=== PATIENT | male | born 1980 | race African-American/Black ===

== ENCOUNTER 2017-12-20 13:34 | Emergency (ER) | payer OTHER ==
[~2017-12-20] VITALS: Ht 175.3 cm; Wt 67.0 kg
[2017-12-20 13:59] VITALS: BP 105/73
[2017-12-20] MEDS ORDERED: IBUPROFEN 600MG TABLET PO ONE (17:30)
== END 2017-12-20 17:50 | disposition home or self-care (01) ==
LOC: ER 14:30
DX: S62.396A Other fracture of fifth metacarpal bone, right hand, initial encounter for closed fracture (principal); Y08.89XA Assault by other specified means, initial encounter; Y93.89 Activity, other specified; Y92.89 Other specified places as the place of occurrence of the external cause; Y99.8 Other external cause status; Z98.890 Other specified postprocedural states
CPT/HCPCS: 29125; 73130; 99284

== ENCOUNTER 2018-01-16 15:32 | Emergency (ER) | payer OTHER ==
[~2018-01-16] VITALS: Ht 188 cm; Wt 66.0 kg
[2018-01-16] MEDS ORDERED: IBUPROFEN 600MG TABLET PO ONE (18:45)
[2018-01-16] MEDS ORDERED: LIDOCAINE HCL 1% 20ML VIAL (Pyxis) INJ INFIL ONE (19:45)
[2018-01-16] MEDS ORDERED: BACITRACIN ZINC OINT UDPKT TOP ONE (19:45)
[2018-01-16] MEDS ORDERED: LIDOCAINE HCL/PF 1% 10 MG/ML 5ML VIAL IJ NR (20:15)
[2018-01-16] MEDS ORDERED: ACETAMINOPHEN 500MG TABLET PO ONE (20:30)
[2018-01-16 22:01] VITALS: BP 115/87
== END 2018-01-16 22:02 | disposition home or self-care (01) ==
LOC: ER 15:32
DX: S61.211A Laceration without foreign body of left index finger without damage to nail, initial encounter (principal); W26.0XXA Contact with knife, initial encounter; Y93.G3 Activity, cooking and baking; Y92.090 Kitchen in other non-institutional residence as the place of occurrence of the external cause; Z72.0 Tobacco use
CPT/HCPCS: 12001; 99283; J3490

== ENCOUNTER 2018-01-27 14:02 | Emergency (ER) | payer OTHER ==
[~2018-01-27] VITALS: Ht 188 cm; Wt 70.0 kg
[2018-01-27 14:12] VITALS: BP 112/70
== END 2018-01-27 19:11 | disposition home or self-care (01) ==
LOC: ER 14:02
DX: S61.210D Laceration without foreign body of right index finger without damage to nail, subsequent encounter (principal); F17.200 Nicotine dependence, unspecified, uncomplicated; X58.XXXD Exposure to other specified factors, subsequent encounter; Z86.73 Personal history of transient ischemic attack (TIA), and cerebral infarction without residual deficits; Z98.890 Other specified postprocedural states
CPT/HCPCS: 99281

== ENCOUNTER 2019-10-26 15:20 | Emergency (ER) | payer MEDICAID, OTHER ==
[~2019-10-26] VITALS: Ht 188 cm; Wt 68.0 kg
[2019-10-26 15:56] VITALS: BP 121/83
[2019-10-26] MEDS ORDERED: CEFTRIAXONE SODIUM 250 MG/VIAL IM ONE (16:30)
[2019-10-26] MEDS ORDERED: LIDOCAINE HCL/PF 1% 10 MG/ML 5ML VIAL IJ ONE (16:30)
[2019-10-26] MEDS ORDERED: AZITHROMYCIN 500 MG TABLET PO ONE (16:30)
[2019-10-26 16:47] LABS: CLARITY URINE TURBID (CLEAR); COLOR URINE YELLOW (YELLOW); KETONES URINE TRACE (NEGATIVE); LEUKOCYTE ESTERASE URINE NEGATIVE (NEGATIVE); NITRITE URINE NEGATIVE (NEGATIVE); OCCULT BLOOD URINE NEGATIVE (NEGATIVE); PH URINE 5.5 (4.5-8.0); PROTEIN URINE TRACE (NEGATIVE); SPECIFIC GRAVITY URINE 1.035 (1.005-1.030)
[2019-10-30 04:07] LABS: NEISSERIA GONORRHOEAE NAA Negative (Negative)
== END 2019-10-26 17:00 | disposition home or self-care (01) ==
LOC: ER 15:20
DX: A64 Unspecified sexually transmitted disease (principal); F41.9 Anxiety disorder, unspecified; Z86.73 Personal history of transient ischemic attack (TIA), and cerebral infarction without residual deficits
CPT/HCPCS: 81003; 87491; 87591; 96372; 99284; J0696; J3490; 99283

== ENCOUNTER 2020-03-07 14:39 | Emergency (ER) | payer MEDICAID ==
[~2020-03-07] VITALS: Ht 188 cm; Wt 62.0 kg
[2020-03-07 14:51] VITALS: BP 108/72
[2020-03-07] MEDS ORDERED: IBUPROFEN 600MG TABLET PO ONE (16:00)
== END 2020-03-07 16:59 | disposition home or self-care (01) ==
LOC: ER 14:39
DX: S63.619A Unspecified sprain of unspecified finger, initial encounter (principal); X58.XXXA Exposure to other specified factors, initial encounter; Y93.89 Activity, other specified; Y92.89 Other specified places as the place of occurrence of the external cause; Y99.8 Other external cause status
CPT/HCPCS: 29130; 73140; 99283

== ENCOUNTER 2020-10-03 07:42 | Emergency (ER) | payer MEDICAID ==
[~2020-10-03] VITALS: Ht 188 cm; Wt 72.0 kg
[2020-10-03] MEDS: TETANUS, DIPHTHERIA, PERTUSSIS VAC/PF 0.5ML (>7YR OLD) IM ONE ×2 (08:15→08:18)
[2020-10-03] MEDS ORDERED: OLANZAPINE 5MG TABLET ODT PO ONE (08:15)
[2020-10-03] MEDS ORDERED: LIDOCAINE HCL/PF 1% 10 MG/ML 5ML VIAL IJ ONE (08:15)
[2020-10-03] MEDS ORDERED: CEPH500T MT (10:43)
[2020-10-03 12:20] VITALS: BP 130/85
== END 2020-10-03 12:29 | disposition home or self-care (01) ==
LOC: ER 07:42
DX: S01.511A Laceration without foreign body of lip, initial encounter (principal); Z86.59 Personal history of other mental and behavioral disorders; Y04.0XXA Assault by unarmed brawl or fight, initial encounter; Y93.89 Activity, other specified; Y92.89 Other specified places as the place of occurrence of the external cause; Y99.8 Other external cause status
CPT/HCPCS: 12013; 70450; 72125; 99285; J3490; Z7610; 90715

== ENCOUNTER 2020-10-11 14:33 | Emergency (ER) | payer MEDICAID ==
[~2020-10-11] VITALS: Ht 188 cm; Wt 68.0 kg
[~2020-10-11 14:33] MED LIST: CEPH500T MT
[2020-10-11 15:11] VITALS: BP 123/83
== END 2020-10-11 15:35 | disposition home or self-care (01) ==
LOC: ER 14:33
DX: Z48.02 Encounter for removal of sutures (principal)
CPT/HCPCS: 99281

== ENCOUNTER 2021-04-10 18:52 | Emergency (ER) | payer MEDICAID ==
[~2021-04-10] VITALS: Ht 188 cm; Wt 70.0 kg
[2021-04-10 22:11] LABS: CLARITY URINE CLEAR (CLEAR); COLOR URINE DARK YELLOW (YELLOW); KETONES URINE 2+ (NEGATIVE); LEUKOCYTE ESTERASE URINE NEGATIVE (NEGATIVE); NITRITE URINE NEGATIVE (NEGATIVE); OCCULT BLOOD URINE NEGATIVE (NEGATIVE); PH URINE 5.5 (4.5-8.0); PROTEIN URINE 1+ (NEGATIVE); SPECIFIC GRAVITY URINE 1.035 (1.005-1.030); UROBILINOGEN URINE 0.2 E.U./dL (0.2-1.0)
[2021-04-10 22:13] LABS: BASOPHILS % 0.5 % (0.0-2.0); EOSINOPHILS % 0.4 % (0.0-5.0); HEMATOCRIT. 38.4 % (42.0-52.0); LYMPHOCYTES % 24.7 % (20.0-50.0); MEAN CORPUSCULAR HEMOGLOBIN 30.3 pg (28.0-32.0); MEAN CORPUSCULAR VOLUME 89.8 fL (80.0-94.0); MEAN PLATELET VOLUME 8.1 fl (7.4-10.4); MONOCYTES % 10.7 % (2.0-8.0); NEUTROPHILS % 63.7 % (40.0-76.0); PLATELET 242 x1000/uL (130-400); RED BLOOD CELL COUNT 4.27 mill/uL (4.7-6.1); RED CELL DISTRIBUTION WIDTH 14.6 % (11.6-14.6)
[2021-04-10 22:20] LABS: CHLORIDE 109 mEq/L (98-107)
[2021-04-10 22:24] LABS: ETHANOL BLOOD < 10 mg/dL
[2021-04-10 22:29] LABS: *BARBITURATES SCREEN URINE NEGATIVE (NEGATIVE); CANNABINOID URINE SCREEN PRESUMTIVE POSITIVE (NEGATIVE); OPIATES URINE SCREEN NEGATIVE (NEGATIVE); PHENCYCLIDINE URINE SCREEN PRESUMTIVE POSITIVE (NEGATIVE)
[2021-04-10 22:30] LABS: *BENZODIAZEPINES SCREEN URINE PRESUMTIVE POSITIVE (NEGATIVE); *COCAINE SCREEN URINE NEGATIVE (NEGATIVE); METHADONE URINE SCREEN NEGATIVE (NEGATIVE)
[2021-04-10] MEDS ORDERED: LORAZEPAM 2MG/ML CPJ IV ONE ×2 (22:30→23:00)
[2021-04-10 22:33] LABS: *AMPHETAMINES SCREEN URINE PRESUMTIVE POSITIVE (NEGATIVE)
[2021-04-10] MEDS ORDERED: HALOPERIDOL LACTATE 5MG/ML VIAL IM ONE (23:00)
[2021-04-11] MEDS: OLANZAPINE 5MG TABLET PO SCH (09:30)
[2021-04-12] MEDS: OLANZAPINE 5MG TABLET PO SCH ×2 (20:39→20:42)
[2021-04-13] MEDS: OLANZAPINE 5MG TABLET PO SCH ×3 (09:18→21:00)
[2021-04-14] MEDS: OLANZAPINE 5MG TABLET PO SCH (08:48)
[2021-04-14] MEDS ORDERED: CITALOPRAM HYDROBROMIDE 10MG TABLET PO NR (12:45)
[2021-04-14 16:42] VITALS: BP 116/73
[2021-04-14] MEDS ORDERED: QUETIAPINE FUMARATE 50MG TABLET PO SCH (21:00)
== END 2021-04-14 17:10 | disposition short-term general hospital (02) ==
LOC: ER 18:52
DX: F20.9 Schizophrenia, unspecified (principal); R45.851 Suicidal ideations; F17.200 Nicotine dependence, unspecified, uncomplicated; F16.129 Hallucinogen abuse with intoxication, unspecified; F19.10 Other psychoactive substance abuse, uncomplicated; I49.9 Cardiac arrhythmia, unspecified; Z20.822 Contact with and (suspected) exposure to COVID-19
CPT/HCPCS: 36415; 80053; 80305; 80320; 81003; 85025; 93005; 96372; 96374; 99285; J1630; J2060; G0480

== ENCOUNTER 2021-05-22 08:32 | Emergency (ER) | payer MEDICAID ==
[~2021-05-22] VITALS: Ht 188 cm; Wt 69.0 kg
[2021-05-22] MEDS ORDERED: DOXY100C5 MT (08:54)
[2021-05-22] MEDS ORDERED: CEFTRIAXONE SODIUM 500 MG/VIAL IM ONE (09:00)
[2021-05-22] MEDS ORDERED: DOXYCYCLINE HYCLATE 100MG CAPSULE PO ONE (09:00)
[2021-05-22 10:04] VITALS: BP 121/81
[2021-05-25 07:08] LABS: NEISSERIA GONORRHOEAE NAA Negative (Negative)
== END 2021-05-22 10:00 | disposition home or self-care (01) ==
LOC: ER 08:32
DX: Z11.3 Encounter for screening for infections with a predominantly sexual mode of transmission (principal); F12.10 Cannabis abuse, uncomplicated; F13.10 Sedative, hypnotic or anxiolytic abuse, uncomplicated; Z98.890 Other specified postprocedural states; Z86.59 Personal history of other mental and behavioral disorders
CPT/HCPCS: 87491; 87591; 96372; 99283; J0696

== ENCOUNTER 2022-02-12 08:44 | Emergency (ER) | payer MEDICAID ==
[~2022-02-12] VITALS: Ht 188 cm; Wt 73.0 kg
[~2022-02-12 08:44] MED LIST changes: +DOXY100C5 MT
[2022-02-12 09:02] VITALS: BP 120/80
== END 2022-02-12 10:56 | disposition left against medical advice (07) ==
LOC: ER 09:07
DX: Z53.21 Procedure and treatment not carried out due to patient leaving prior to being seen by health care provider (principal)

== ENCOUNTER 2022-07-11 14:22 | Emergency (ER) | payer MEDICAID ==
[~2022-07-11] VITALS: Ht 185.4 cm; Wt 64.0 kg
[2022-07-11 14:27] VITALS: BP 103/69
[2022-07-11 18:58] LABS: CLARITY URINE CLEAR (CLEAR); COLOR URINE YELLOW (YELLOW); KETONES URINE TRACE (NEGATIVE); LEUKOCYTE ESTERASE URINE NEGATIVE (NEGATIVE); NITRITE URINE NEGATIVE (NEGATIVE); OCCULT BLOOD URINE NEGATIVE (NEGATIVE); PROTEIN URINE TRACE (NEGATIVE); UROBILINOGEN URINE 0.2 E.U./dL (0.2-1.0)
[2022-07-11 19:03] LABS: CHLORIDE 109 mEq/L (98-107)
[2022-07-11 19:45] LABS: BASOPHILS % 0.7 % (0.0-2.0); EOSINOPHILS % 1.6 % (0.0-5.0); HEMATOCRIT. 41.2 % (42.0-52.0); HEMOGLOBIN. 13.6 g/dL (14.0-18.0); LYMPHOCYTES % 43.2 % (20.0-50.0); MEAN CORPUSCULAR HEMOGLOBIN 30.1 pg (28.0-32.0); MEAN CORPUSCULAR VOLUME 91.1 fL (80.0-94.0); MEAN PLATELET VOLUME 8.6 fl (7.4-10.4); MONOCYTES % 7.7 % (2.0-8.0); NEUTROPHILS % 46.8 % (40.0-76.0); PLATELET 244 x1000/uL (130-400); RED BLOOD CELL COUNT 4.52 mill/uL (4.7-6.1); RED CELL DISTRIBUTION WIDTH 14.8 % (11.6-14.6)
== END 2022-07-11 20:51 | disposition home or self-care (01) ==
LOC: ER 14:36
DX: R10.9 Unspecified abdominal pain (principal); R31.9 Hematuria, unspecified; D64.9 Anemia, unspecified; F41.9 Anxiety disorder, unspecified; F12.10 Cannabis abuse, uncomplicated
CPT/HCPCS: 36415; 80048; 81003; 85025; 99283

== ENCOUNTER 2024-10-06 15:26 | Emergency (ER) | payer MEDICAID ==
[~2024-10-06] VITALS: Ht 188 cm; Wt 67.0 kg
[2024-10-06 15:34] VITALS: O2SAT 99
[2024-10-06 17:03] LABS: CLARITY URINE CLEAR (CLEAR); COLOR URINE YELLOW (YELLOW); GLUCOSE URINE NEGATIVE (NEGATIVE); KETONES URINE TRACE (NEGATIVE); LEUKOCYTE ESTERASE URINE NEGATIVE (NEGATIVE); NITRITE URINE NEGATIVE (NEGATIVE); OCCULT BLOOD URINE 3+ (NEGATIVE); PH URINE 5.5 (4.5-8.0); PROTEIN URINE TRACE (NEGATIVE); SPECIFIC GRAVITY URINE 1.032 (1.005-1.030); UROBILINOGEN URINE 0.2 E.U./dL (0.2-1.0)
[2024-10-06 17:20] LABS: BACTERIA URINE NONE SEEN; RBC URINE TNTC /hpf (0-2); SQUAMOUS EPITHELIAL CELL URINE RARE /lpf (RARE/1+); WBC URINE 0-2 /hpf (0-2)
[2024-10-06] MEDS ORDERED: DOXY100C5 MT (17:30)
[2024-10-06] MEDS: LIDOCAINE HCL 1% 20ML VIAL INFIL ONE (17:30)
[2024-10-06] MEDS: CEFTRIAXONE SODIUM 500MG VIAL IM ONE (17:36)
[2024-10-06 17:54] VITALS: BP 126/82; PULSE 79; RESP 18; TEMP 36.8; O2SAT 99
[2024-10-10 04:07] LABS: CHLAMYDIA TRACHOMATIS NAA Negative (Negative); NEISSERIA GONORRHOEAE NAA Negative (Negative)
== END 2024-10-06 17:55 | disposition home or self-care (01) ==
LOC: ER 15:26
DX: R31.9 Hematuria, unspecified (principal); R30.0 Dysuria; A63.8 Other specified predominantly sexually transmitted diseases; F20.9 Schizophrenia, unspecified; F10.90 Alcohol use, unspecified, uncomplicated; F12.90 Cannabis use, unspecified, uncomplicated
CPT/HCPCS: 99283; 86592; 87491; 87591; 81003; 36415; 96372; J0696; J3490

== ENCOUNTER 2025-01-23 06:25 | Emergency (ER) | payer MEDICAID ==
[~2025-01-23] VITALS: Ht 172.7 cm; Wt 68.0 kg
[2025-01-23 06:36] VITALS: O2SAT 98
[2025-01-23 08:00] LABS: CLARITY URINE CLEAR (CLEAR); COLOR URINE YELLOW (YELLOW); GLUCOSE URINE NEGATIVE (NEGATIVE); KETONES URINE TRACE (NEGATIVE); LEUKOCYTE ESTERASE URINE NEGATIVE (NEGATIVE); NITRITE URINE NEGATIVE (NEGATIVE); OCCULT BLOOD URINE 2+ (NEGATIVE); PH URINE 5.5 (4.5-8.0); PROTEIN URINE NEGATIVE (NEGATIVE); SPECIFIC GRAVITY URINE 1.028 (1.005-1.030); UROBILINOGEN URINE 0.2 E.U./dL (0.2-1.0)
[2025-01-23 08:21] VITALS: TEMP 37
[2025-01-23 08:40] LABS: SQUAMOUS EPITHELIAL CELL URINE RARE /lpf (RARE/1+)
[2025-01-23 08:41] LABS: BACTERIA URINE NONE SEEN; RBC URINE 15-25 /hpf (0-2); WBC URINE 0-2 /hpf (0-2)
[2025-01-23 11:30] VITALS: BP 107/74; PULSE 86; RESP 12; O2SAT 99
== END 2025-01-23 12:08 | disposition home or self-care (01) ==
LOC: ER 06:25
DX: R31.9 Hematuria, unspecified (principal); F20.9 Schizophrenia, unspecified; F12.90 Cannabis use, unspecified, uncomplicated; Z98.890 Other specified postprocedural states
CPT/HCPCS: 81003; 99283